=== PATIENT | female | born 1970 | race Caucasian/White ===

== ENCOUNTER 2023-09-04 08:05 | Outpatient (CLI) | payer BC, SELFPAY | END 2023-09-04 08:06 | disposition home or self-care (01) | LOC: NFLDREF 09-06 19:59 | PROVIDERS: Visit Provider Nurse Practitioner Family | DX: E55.9 Vitamin D deficiency, unspecified (principal); Z13.1 Encounter for screening for diabetes mellitus; Z01.818 Encounter for other preprocedural examination; Z13.6 Encounter for screening for cardiovascular disorders | CPT/HCPCS: 80061; 82306; 82947 ==

== ENCOUNTER 2024-09-18 15:53 | Emergency (ER) | payer BC, SELFPAY ==
[2024-09-18 16:03] VITALS: BP 169/101; PULSE 109; RESP 22; TEMP 36.2; O2SAT 100; BMI 21.3
--- NOTE | 2024-09-18 16:40 | ED_ITS ---
HPI - Wound/Laceration General Time Seen by Provider: 16:40 Date Seen: 09/18/24 Chief Complaint: Laceration/Wound Stated Complaint: cut tip of finger off Time Seen by Provider: 09/18/24 16:37 Source: patient, family and RN notes reviewed Mode of arrival: ambulatory Limitations: no limitations History of Present Illness HPI narrative: Aleta is a 54-year-old female unknown last tetanus otherwise healthy not on blood thinners who comes to the [facility] for evaluation of a finger injury. Aleta notes that she was using a knife and cutting food when the knife hit something hard and slipped slicing the fat pad of her left 4th finger away. She did bring this in with her. Unfortunately she has persistent bleeding in this area and the paper towel that she had on is now adhered to her finger. She is experiencing significant pain at this time. She had not taken any medication before coming in. She does not know when her last tetanus is. She is requesting medication for pain as she states that the pain is unbearable. 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 Related Data Home Medications ?Medication ?Instructions ?Recorded ?Confirmed omega-3 fatty acids 500 mg capsule 500 mg PO QDAY 10/21/22 04/26/24 cholecalciferol (vitamin D3) 50 50 mcg PO QDAY 04/26/24 04/26/24 mcg/drop (2,000 unit/drop) oral drops Previous Rx's ?Medication ?Instructions ?Recorded escitalopram oxalate 10 mg tablet 10 mg PO QDAY #90 tabs 04/26/24 (Lexapro) hydroxyzine pamoate 25 mg capsule 25 mg PO QHS PRN insomnia #30 caps 04/26/24 (Vistaril) Allergies Allergy/AdvReac Type Severity Reaction Status Date / Time Sulfa (Sulfonamide Allergy canker Verified 04/26/24 10:57 Antibiotics) sores Review of Systems Narrative: Not currently on blood thinners. 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[employer], Vegetarian diet Non-smoker, Does not drink alcohol Exercises 2 times per week horse riding, skiing, gardening, active life style What is your current living situation?: I presently have a place to live Problems where you live: no known problems In the past 12 months, utilities in danger of being shut off: no In past 12 months, lack of transportation kept you from medical appts, meetings, work, or getting things needed for daily living: no In the past 12 mos, have been you worried that your food would run out before you had money to buy more?: never true In the past 12 mos, the food you bought just didn't last and you didn't have money to buy more?: never true Smoking Status: Never smoker Do you use any of these nicotine containing products: None Second hand tobacco smoke exposure: No How often do you have a drink containing alcohol: never AUDIT-C Alcohol total score: 0 Non-prescribed substance use: denies use How often does anyone, including family, friends and others, physically hurt you : never How often does anyone, including family, friends and others, insult or talk down to you: never How often does anyone, including family, friends and others, threaten you with harm: never How often does anyone, including family, friends and others, scream or curse at you: never Little interest or pleasure in doing things: not at all Feeling down, depressed, or hopeless: not at all Exam Narrative: Exam Narrative: Aleta is seen in stab 2. She is very tearful and is in significant distress with finger pain. She is very apprehensive about pulling the paper towel away. We are able to do that and I am able to visualize a 4.5 mm area of skin avulsion on the fat pad of her left 4th finger. Underlying soft tissue is noted and there is no evidence of a bone visualized. Patient noted to have persistent bleeding in this area. We do cover this with gauze. Const: Vital Signs, click to edit/add: Vital Signs - 24 hr 09/18/24 16:03 Temperature 97.2 F L Pulse Rate [Pulse Oximeter] 109 H Respiratory Rate 22 Blood Pressure [Ri ght Upper Arm] 169/101 H Pulse Oximetry 100 Oxygen Delivery Me thod Room Air Documenting provider has reviewed patient's vital signs: yes Course Course ED Course: Given patient's level of discomfort I did order p.o. Lincoln 7.5/325. We also spoke about a digital block as I would would do wish to clean this area. Prior to the digital block patient did received a Lincoln and it seemed to have helped somewhat after the paper towel was removed and gauze was applied. I was able to gently pull the gauze away with some normal saline applied in this area. Again, this area visualized and I do not see any obvious bone. As patient was feeling bit better with Lincoln, she decided against a digital block. State if we could not get the bleeding stopped with a Gelfoam I would do a digital block as she may need some localized cautery. She agreed with this. I was able to apply Gelfoam and patient's wound became hemostatic. I then placed a gauze and finally tube gauze over this area and this area was monitored for an additional 7 minutes. No further bleeding occurred. Pain was also much improved. Vital Signs Vital signs: Initial Vital Signs Temperature 97.2 F L 09/18/24 16:03 Temperature Source Temporal Artery Scan 09/18/24 16:03 Pulse Rate 109 H 09/18/24 16:03 Pulse Rhythm Regular 09/18/24 16:03 Respiratory Rate 22 09/18/24 16:03 Blood Pressure 169/101 H 09/18/24 16:03 Blood Pressure Mean 123 H 09/18/24 16:03 Blood Pressure Position Sitting 09/18/24 16:03 Pulse Oximetry 100 09/18/24 16:03 Oxygen Delivery Method Room Air 09/18/24 16:03 Vital Signs Temperature 97.2 F L 09/18/24 16:03 Pulse Rate 109 H 09/18/24 16:03 Respiratory Rate 22 09/18/24 16:03 Blood Pressure 169/101 H 09/18/24 16:03 Pulse Oximetry 100 09/18/24 16:03 Oxygen Delivery Method Room Air 09/18/24 16:03 Temperature 97.2 F L 09/18/24 16:03 Pulse Rate 109 H 09/18/24 16:03 Respiratory Rate 22 09/18/24 16:03 Blood Pressure 169/101 H 09/18/24 16:03 Pulse Oximetry 100 09/18/24 16:03 Oxygen Delivery Method Room Air 09/18/24 16:03 Medications Administered Medications: Discontinued Medications Generic Name Dose Route Start Last Admin Trade Name Damon PRN Reason Stop Dose Admin Hydrocodone Bitart/Acetaminophen 1 tab 09/18/24 16:50 09/18/24 19:03 Hydrocodone/Acetamin 7.5-325 Tablet PO 09/18/24 16:51 1 tab ONCE ONE Administration MDM - Wound/Laceration MDM Narrative Medical decision making narrative: 1. Skin avulsion-fat pad of the left 4th finger is missing. Aleta did bring the remnant in but this is not something that we would be able to sew back on. Fortunately Gelfoam did work and stopped the continuous bleeding. Patient fee ling much better after 1 dose of Lincoln here in the ED. my recommendation is to leave this particular bandage in place for the next 48 hours. She will likely need to soak the Gelfoam off. I would recommend place a thin layer of bacitracin and Band-Aid over this area daily after that. I would like her to limit use of her left hand over the next 4-5 days so as not to disturb her scab formation as reading was impressive here today. Patient states that she ?bleeds easily?. Do not soak this finger in dishwater. May shower after the initial dressing is removed. Monitor for infection and seek medical attention for fever, red streaks up hand, purulent drainage. For pain may use ibuprofen as needed. Will give her a few tablets of Lincoln 5/3 25 1-2 tablets p.o. Q 4-6 hours p.r.n. 8. Tablets via [employer] machine. Tetanus was found to be update in 2019. 2. Disposition-home at this time. Seek medical attention for worsening symptoms and as needed. Medical Records Attestation: I reviewed the patient's medical records. Discharge Plan Discharge Clinical Impression: Avulsion of skin of finger Qualifiers: Encounter type: initial encounter Qualified Code(s): S61.209A - Unspecified open wound of unspecified finger without damage to nail, initial encounter Instructions: Finger Laceration (ED) Additional Instructions: 1. Leave dressing on until Thursday. May soak the Gelfoam off. Gently cover with bacitracin and we bandage. Suggest covering with a bandage for normal activity but if sitting, leave the wound open to air. Monitor for infection and seek medical attention for red streaks up finger fever or unusual drainage. 2. Ibuprofen as needed for discomfort. Lincoln which is a combination medication of hydrocodone and acetaminophen and should not be used in combination with alcohol or with activity such as driving due to its sedating effects. If you are using Lincoln for pain suggest addition of a stool softener as this often causes constipation. 3. I would limit use of left hand for the next 5-7 days so that the bleeding does not restart. Return to the emergency room as needed. Activity Level: Activity as Tolerated Discharge Diet: Regular Prescriptions: No Action omega-3 fatty acids 500 mg capsule 500 mg PO QDAY cholecalciferol (vitamin D3) 50 mcg/drop (2, 000 unit/drop) drops 50 mcg PO QDAY escitalopram oxalate [Lexapro] 10 mg tablet 10 mg PO QDAY Qty: 90 0RF hydroxyzine pamoate [Vistaril] 25 mg capsule 25 mg PO QHS PRN (Reason: insomnia) Qty: 30 1RF Follow Up/Referrals: Soledad Camargo [employer] SET UP OPERATOR [Primary Care Provider] - Stand Alone Forms: [employer] Info Instructions
[2024-09-18] MEDS: HYDROCODONE/ACETAMIN 7.5-325 TABLET 1 TAB PO (19:03)
== END 2024-09-18 17:06 | disposition home or self-care (01) ==
PROVIDERS: Emergency Provider Family Medicine; PCP Nurse Practitioner Family
DX: S61.205A Unspecified open wound of left ring finger without damage to nail, initial encounter (principal); W26.9XXA Contact with unspecified sharp object(s), initial encounter
CPT/HCPCS: 17250; 99282; 99284; A9270